=== PATIENT | male | born 1985 ===

== ENCOUNTER 2024-08-01 08:50 | Outpatient (AMB) | payer OTHER, SELFPAY ==
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
--- OUTSIDE RECORDS SUMMARY | 2024-08-01 09:21 | XMS_ITS | Clinical Summary ---
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 Max Daily Amount: 4 tablets 112 tablet 5 Active oxyCODONE-aceta minophen (PERCOCET) 5-325 mg per tablet Take 1 tablet by mouth every 6 (six) hours. Max Daily Amount: 4 tablets 112 tablet 5 Active oxyCODONE-aceta minophen (PERCOCET) 5-325 mg per tablet Take 1 tablet by mouth every 6 (six) hours. Max Daily Amount: 4 tablets 112 tablet 5 07/29/19 25 Discontinu ed(Reorder ) Active Problems Problem Noted Date Diagnosed Date Shortness of breath 06/12/2021 Overview (11/12/2023): Last Assessment & Plan: Etiology unclear. Likely related to his PVCs. Echocardiogram pending. Ventricular premature beats 08/29/2020 Overview (11/12/2023): PVCA Last Assessment & Plan: Stable at this time. Symptoms are rare. He is not on the metoprolol. Echocardiogram from July 2021 revealed a normal left ventricular ejection fraction of 55% and no wall motion abnormalities and no increased thickness of the left ventricle. We will continue to monitor. Palpitations 08/29/2020 Overview (11/12/2023): PVCA Last Assessment & Plan: Improved. No further work-up at this time. Obstructive sleep apnea 08/08/2019 Overview (11/12/2023): [facility] Home Sleep Apnea Test: Date 07/31/2019; BMI 35; RDI 19, AHI 10; average oxygen saturation 95 % (lowest 89 % without saturations <88% for 5% or more of study) - Obstructive Sleep Apnea - mild; without sleep related hypoventilation by 2019 home sleep apnea test. Severe obesity (BMI 35.0-39. 9) with comorbidity (CMS/HCC V24, CMS/HCC V28) 02/19/2017 Elevated blood sugar 08/11/2016 Lumbar disc disease 04/25/2014 Lumbago 04/25/2014 Encounters Date Type Department Care Team Description 05/19/2024 9:30 AM EDT Office Visit Adult Medicine [address] [phone] Don Coats MD Lumbar disc disease (Primary Dx); Obesity (BMI 30-39.9); Weak urine stream; Adenopathy from Last 3 Months Immunizations Name Administration Dates Next Due Td Tetanus diptheria (Tdvax) 7yo and older 01/01 Tdap Tetanus diptheria acell ular pertussis (Boostrix; Adacel) 7yo and older 03/14/2016 Surgical History Surgery Date Site/Laterality Comments WISDOM TOOTH EXTRACTION PROCEDURE: HISTORICAL WISDOM TEETH EXTRACTION SHOULDER SURGERY Right PROCEDURE: HISTORICAL SHOULDER SURGERY; COMMENT: rotator cuff repair Medical History Medical History Date Comments Seborrheic keratosis DX:Seborrhe ic keratosis Lumbar disc disease 04/25/2014 DX:Lumbar di sc disease Lumbago 04/25/2014 DX:Lumbago Family History Medical History Relation Name Comments Breast cancer Aunt maternal ?age/lateralit y?; lives in [place] Diabetes Maternal Grandmother HTN, emeli ng cancer(+smoker) Heart attack Mother breast cancer ( unilateral, age 45); HTN, HLD Relation Name Status Comments Aunt maternal Alive Brother x 1 Alive Father unknown Alive Maternal Grandfather Alive Maternal Grandmother Mother Alive Paternal Grandfather unknown Paternal Grandmother unknown Sister x 2 Alive Social History Tobacco Use Types Packs/Day Years Used Date Smoking Tobacco: Never Smokeless Tobacco: Never Tobacco Cessation:Counseling Given: Not Answered Alcohol Use Standard Drinks/Week Comments Yes 10 (1 standard drink = 0.6 oz pu re alcohol) Sex and Gender Information Value Date Recorded Sex Assigned at Not on file Legal Sex Male 9:26 AM EST Gender Identity Not on file Sexual Orientation Not on file Obstetrics History Last Filed Vital Signs Vital Sign Reading Time Taken Comments Blood Pressure 138/74 05/19/2024 9:26 AM EDT Pulse 78 05/19/2024 9:26 AM EDT Temperature 36.6 C (97.9 F) 05/19/2024 9:26 AM EDT Respiratory Rate 16 05/19/2024 9:26 AM EDT Oxygen Saturation 98% 02/12/2024 10:07 AM EST Inhaled Oxygen Concentration - - Weight 117 kg (257 lb) 05/19/2024 9:26 AM EDT Height 171.5 cm (5' 7.52 ) 05/19/2024 9:26 AM ED T Body Mass Index 39.63 05/19/2024 9:26 AM EDT Plan of Treatment Upcoming Encounters Date Type Department Care Team (Late st Contact Info) Description 08/10/2024 9:00 AM EDT Office Visit Adult Medicine [facility] [address] [place] [phone] Don Coats MD [address] [place] [address] 10/13/2024 2:00 PM EDT Office Visit Bariatric Surgery - [place] [address] [phone] Mya Paredes MD [address] [address] 10/26/2024 10:40 AM EDT Office Visit [facility] [address] [facility] [address] [place] [phone] Anna Lewis NP [address] [place] [address] Health Maintenance Due Date Last Done Comments COVID-19 Vaccine (#1) 1989 Hepatitis B Vaccines (1 of 3 - 19+ 3-dose series) 05/05/2003 Social Influencers of Health Screening 01/18/2022 Depression Screening 02/12/2024 02/11/2023 Influenza Vaccine (Season Ended) 2024 DTaP,Tdap,and Td Vaccines (3 - Td or Tdap) 03/14/2026 03/14/2016, 01/01/2013 Cholesterol Screening (Lipid Panel) 02/14/2029 02/15/2024, 07/17/2023, 07/17/2023 HIV Screening Completed 02/12/2024, 11/18/2021 Hepatitis C Screening Completed 02/12/2024 , 11/18/2021 HIB Vaccines Aged Out No longer eligi ble based on patient's age to complete this topic HPV Vaccines Aged Out No longer eligi ble based on patient's age to complete this topic Hepatitis A Vaccines Aged Out No long er eligible based on patient's age to complete this topic IPV Vaccines Aged Out No longer eligi ble based on patient's age to complete this topic MMR Vaccines Aged Out No longer eligi ble based on patient's age to complete this topic Meningococcal ACWY Vaccine Aged Out N o longer eligible based on patient's age to complete this topic Meningococcal B Vaccine Aged Out No l onger eligible based on patient's age to complete this topic Pneumococcal Vaccine: Pediatrics (0 to 5 Years) and At-Risk Patients (6 to 64 Years) Aged Out No longer eligible b ased on patient's age to complete this topic RSV Immunization Patients Under 20 months Aged Out No longer eligible b ased on patient's age to complete this topic Varicella Vaccines Aged Out No longer eligible based on patient's age to complete this topic Procedures Procedure Name Priority Date/Time Associated Diagnosis Comments CBC WITH AUTO DIFFERENTIAL Routine 05/19/2024 9:55 AM EDT Adenopathy PROSTATE SPECIFIC ANTIGEN SCREEN Routine 05/19/2024 9:55 AM EDT Weak urine stream CBC AND DIFFERENTIAL Routine 05/19/2024 9:55 AM EDT Adenopathy LIPID PANEL WITH REFLEX TO DIRECT LDL Routine 02/15/2024 8:34 AM EST Screening for lipid disorders HEPATITIS C ANTIBODY Routine 02/12/2024 12:45 PM EST Screen for STD (sexually transmitted disease) HIV 1, 2 ANTIBODY, P24 ANTIGEN WITH REFLEX TO DIFFERENTIATION Routine 02/12/2024 12:45 PM EST Screen for STD (sexually transmitted disease) HM DEPRESSION SCREENING Routine 02/11/2023 from Last 3 Months or Most Recently Relevant to Health Maintenance Results * Prostate specific antigen screen (05/19/2024 9:55 AM EDT) PSA 0.47 0.00 - 4.00 ng/mL LAB CHEMISTRY METHOD 05/19/2024 12:48 PM EDT [facility] Blood Venous blood specimen / Unknown Venipuncture / Unknown 05/19/2024 9:55 AM EDT 05/19/2024 9:55 AM EDT Narrative [facility] - 05/19/2024 12:48 PM EDT The Siemens Advia Centaur Chemiluminescent Immunoassay is used. Results obtained with different assay methods or kits cannot be used interchangeably. Results cannot be interpreted as absolute evidence of the presence or absence of malignant disease. us Don Coats MD LAB BLOOD ORDERABLES Final Resu lt [facility] [address] [place] [address], [place] [phone] * (ABNORMAL) CBC auto differential (05/19/2024 9:55 AM EDT) [facility] WBC 8.8 4.8 - 10.8 K/mcL LAB HEMETOLOGY METHOD 05/19/2024 12:28 PM EDT [facility] RBC 5.10 4.50 - 5.50 M/mcL LAB HEMETOLOGY [facility]24 [facility] Hemoglobin 15.0 13.5 - 17.5 g/dL LAB HEMETOLOGY METHOD 05/19/2024 12:28 [facility] Hematocrit 45.3 42.0 - 54.0 % LAB HEMETOLOGY METHOD 05/19/2024 12:28 [facility] MCV 89.5 79.0 - 98.0 FL LAB HEMETOLOGY METHOD 05/19/2024 12:28 PM [facility] MCH 29.6 27.0 - 32.0 pcg LAB HEMETOLOGY METHOD 05/19/2024 12:28 PM [facility] MCHC 33.1 32.0 - 37.0 g/dL LAB HEMETOLOGY METHOD 05/19/2024 12:28 PM [facility] RDW 12.4 11.0 - 15.0 % LAB HEMETOLOGY METHOD 05/19/2024 12:28 PM [facility] Platelets 301 130 - 400 K/mcL LAB HEMETOLOGY METHOD 05/19/2024 12:28 PM [facility] MPV 11.1(H) 7.0 - 11.0 FL LAB HEMETOLOGY METHOD 05/19/2024 12:28 PM [facility] NRBC 0.0 <1.0 % LAB HEMETOLOGY METHOD 05/19/2024 12:28 PM [facility] NRBC Absolute 0.00 <0.10 K/mcL LAB HEMETOLOGY METHOD 05/19/2024 12:28 PM [facility] Neutrophils Relative 52.1 % LAB HEMETOLOGY METHOD 05/19/2024 12:28 PM [facility] Lymphocytes Relative 37.2 % LAB HEMETOLOGY METHOD 05/19/2024 12:28 PM [facility] Monocytes Relative 7.5 % LAB HEMETOLOGY METHOD 05/19/2024 12:28 PM [facility] Eosinophils Relative 1.8 % LAB HEMETOLOGY METHOD 05/19/2024 12:28 PM [facility] Basophils Relative 0.8 % LAB HEMETOLOGY METHOD 05/19/2024 12:28 PM [facility] Immature Granulocytes Relative 0.6 % LAB HEMETOLOGY METHOD 05/19/2024 12:28 PM [facility] Neutrophils Absolute 4.59 1.50 - 7.00 K/mcL LAB HEMETOLOGY METHOD 05/19/2024 12:28 PM [facility] Lymphocytes Absolute 3.27 1.00 - 5.00 K/mcL LAB HEMETOLOGY METHOD 05/19/2024 12:28 PM [facility] Monocytes Absolute 0.66 0.20 - 1.00 K/mcL LAB HEMETOLOGY METHOD 05/19/2024 12:28 PM [facility] Eosinophils Absolute 0.16 0.00 - 0.50 K/mcL LAB HEMETOLOGY METHOD 05/19/2024 12:28 PM [facility] Basophils Absolute 0.07 0.00 - 0.20 K/mcL LAB HEMETOLOGY METHOD 05/19/2024 12:28 PM [facility] Immature Granulocytes Absolute 0.05(H) 0.00 - 0.03 K/mcL LAB HEMETOLOGY METHOD 05/19/2024 12:28 PM [facility] Blood Venous blood specimen / Unknown Venipuncture / Unknown 05/19/2024 9:55 AM EDT 05/19/2024 9:55 AM EDT us Don Coats MD LAB BLOOD ORDERABLES Final Resu lt [facility] [address] [place] [address], [place] [phone] * (ABNORMAL) Lipid panel with reflex to direct LDL (02/15/2024 8:34 AM EST) Cholesterol 250(H) 0 - 200 mg/dL LAB CHEMISTRY METHOD 02/15/2024 10:20 AM EST [facility] Triglycerides 279(H) 0 - 150 mg/dL LAB CHEMISTRY METHOD 02/15/2024 10:20 AM EST [facility] HDL 61 >=40 mg/dL LAB CHEMISTRY METHOD 02/15/2024 10:20 AM EST [facility] LDL Calculated 133(H) 0 - 100 mg/dL LAB CHEMISTRY METHOD 02/15/2024 10:20 AM EST [facility] VLDL Cholesterol Gianfranco 55.8 mg/dL LAB CHEMISTRY METHOD 02/15/2024 10:20 AM EST [facility] Non HDL Chol. (LDL+VLDL) 189(H) <145 mg/dL LAB CHEMISTRY METHOD 02/15/2024 10:20 AM EST [facility] Chol/HDL Ratio 4.1 0.0 - 4.4 LAB CHEMISTRY METHOD 02/15/2024 10:20 AM EST [facility] Blood Venous blood specimen / Unknown Venipuncture / Unknown 02/15/2024 8:34 AM EST 02/15/2024 8:34 AM EST Rehan AMOR LAB BLOOD ORDERABLES Fi nal Result [facility] [address] [place] [address], [place] [phone] * Hepatitis C antibody (02/12/2024 12:45 PM EST) [facility] Hepatitis C Antibody Negative Negative LAB CHEMISTRY METHOD 02/12/2024 5:30 PM EST [facility] Blood Venous blood specimen / Unknown Venipuncture / Unknown 02/12/2024 12:45 PM EST 02/12/2024 12:45 PM EST Rehan AMOR LAB BLOOD ORDERABLES Fi nal Result Performing Organization Address City/[facility]/ZIP Co de Phone Number [facility] [address] [place] [address], * HIV 1,2 antibody, p24 antigen with reflex to differentiation (02/12/2024 12:45 PM EST) [facility] HIV Combo AB/AG Negative Negative LAB CHEMISTRY METHOD 02/12/2024 5:30 PM EST [facility] Blood Venous blood specimen / Unknown Venipuncture / Unknown 02/12/2024 12:45 PM EST 02/12/2024 12:45 PM EST Narrative [facility] - 02/12/2024 5:30 PM EST This assay is a 4th generation assay allowing for earlier detection of HIV infection by detecting the presence of the HIV-1 p24 antigen as well as the traditional antibodies to HIV type 1 (including group O) and type 2. Use of a 4th generation assay is the current CDC recommendation for HIV screening. Rehan AMOR LAB BLOOD ORDERABLES Fi nal Result Performing Organization Address City/[facility]/ZIP Co de Phone Number [facility] [address] [place] [address], [place] [phone] * Hm Depression Screening (02/11/2023) 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
== END 2024-08-01 10:24 | disposition home or self-care (01) ==
LOC: HO.HUSH 08:51
PROVIDERS: PCP Internal Medicine; Visit Provider Urology
DX: R39.198 Other difficulties with micturition (principal); R39.13 Splitting of urinary stream; R35.0 Frequency of micturition; R39.11 Hesitancy of micturition; N53.19 Other ejaculatory dysfunction
CPT/HCPCS: 99204

== ENCOUNTER → 2024-08-01 08:50 | Outpatient (BNVA) | payer OTHER, SELFPAY | PROVIDERS: PCP Internal Medicine; Visit Provider Urology | DX: R35.0 Frequency of micturition (principal); R39.11 Hesitancy of micturition; R39.13 Splitting of urinary stream; N53.19 Other ejaculatory dysfunction; R39.198 Other difficulties with micturition; Z13.9 Encounter for screening, unspecified | CPT/HCPCS: 51798; 81003; 99202 ==

== ENCOUNTER 2024-10-05 09:37 | Outpatient (REF) | payer OTHER, SELFPAY ==
--- NOTE | ~2024-10-05 | US_ITS ---
EXAMINATION: US RETROPERITONEUM HISTORY: R35.0 - Frequency of micturition TECHNIQUE: Real-time grayscale ultrasound imaging of the kidneys was performed and images were reviewed. COMPARISON: There are no prior studies available for comparison. FINDINGS: Right kidney: The right kidney measures 11.7 x 6.5 x 6.7 cm. Renal parenchymal echotexture and thickness are normal. There are no masses. There is no hydronephrosis or renal calculi. Left Kidney: The left kidney measures 12.3 x 6.8 x 5.9 cm. Renal parenchymal echotexture and thickness are normal. There are no masses. There is no hydronephrosis or renal calculi. There is a small amount of debris in the urinary bladder. The urinary bladder is otherwise unremarkable. Bilateral ureteral jets are identified. Before voiding, the urinary bladder measured 7.9 x 7.0 x 7.1 cm, for an estimated volume of 226 mL. After voiding, the urinary bladder measured 3.8 x 1.6 x 3.2 cm, for an estimated volume of 10.6 mL. The prostate measures 3.9 x 3.4 x 3.3 cm, for an estimated volume of 23.5 mL. US/US retroperitoneal comp IMPRESSION: 1. Small amount of debris in the urinary bladder. Otherwise unremarkable retroperitoneal ultrasound. 2. Post void bladder residual of 10.6 mL. 3. Prostate volume of 23.5 mL. Electronically signed by: Maximino Diallo MD 10/05/2024 10:17 AM EDT
--- OUTSIDE RECORDS SUMMARY | 2024-10-05 10:17 | XMS_ITS ---
[facility] Care Team Organization Name Specialty Phone Email Start Date End Da te [facility] CARISSA LOVE Primary Care 12/17/2021 4
--- OUTSIDE RECORDS SUMMARY | 2024-10-05 10:17 | XMS_ITS | Clinical Summary ---
Author Organization [facility] [address] [place] [address] [place] [phone] Phone Care Team Providers Care Venetian Blind Assembler Name Role Phone Don Coats MD Primary Care Provider Allergies No known active allergies Medications oxyCODONE-aceta minophen (PERCOCET) 5-325 mg per tablet Take 1 tablet by mouth every 6 (six) hours. Max Daily Amount: 4 tablets 112 tablet 5 Active tirzepatide, weight loss, (Zepbound) 2.5 mg/0.5 mL solutionIndicat ions:Obesity (BMI 30-39.9) Inject 2.5 mg under the skin every 7 (seven) days. 2 mL 5 Active oxyCODONE-aceta minophen (PERCOCET) 5-325 mg per tablet Take 1 tablet by mouth every 6 (six) hours. Max Daily Amount: 4 tablets 112 tablet 5 Active oxyCODONE-aceta minophen (PERCOCET) 5-325 mg per tablet Take 1 tablet by mouth every 6 (six) hours. Max Daily Amount: 4 tablets 112 tablet 5 09/29/19 25 Discontinu ed(Reorder ) Active Problems Problem Noted Date Diagnosed Date Biceps rupture, distal, right, initial encounter 09/09/2024 Shortness of breath 06/12/2021 Overview (11/12/2023): Last [...] time. Obstructive sleep apnea 08/08/2019 Overview (11/12/2023): [facility] Home Sleep Apnea Test: Date 07/31/2019; BMI [...] Encounters Date Type Department Care Team Description 10/04/2024 Telephone Orthopedic Surgery [facility] [address] [facility] [address] [place] [phone] Shanae Modi MD 09/19/2024 Telephone Orthopedic Surgery [facility] 175 [facility] [address] [place] [phone] Shanae Modi MD 09/16/2024 6:38 PM EDT - 09/16/2024 11:59 PM EDT Hospital Encounter [facility] MRI [address] [place] [phone] Biceps rupture, distal, right, initial encounter Discharge Disposition: Home or Self Care 09/09/2024 1:30 PM EDT Consult Orthopedic Surgery [facility] 175 [facility] [address] [place] [phone] Shanae Modi MD Right elbow pain (Primary Dx); Biceps rupture, distal, right, initial encounter 09/01/2024 Telephone Orthopedics - [address] [phone] Loreta Mendez MA 08/24/2024 10:00 AM EDT - 08/24/2024 11:59 PM EDT Hospital Encounter Radiology Department - [address] [phone] Nonintractable headache, unspecified chronicity pattern, unspecified headache type; Confusion Discharge Disposition: Home or Self Care 08/11/2024 Telephone Adult Medicine [address] [phone] Don Coats MD 08/10/2024 9:00 AM EDT Office Visit Adult Medicine [address] [phone] Don Coats MD Routine physical examination (Primary Dx); Elevated blood sugar; Hypercholesterolemia; Obesity (BMI 30-39.9); Skin lesion; Rupture of right proximal biceps tendon, initial encounter; Nonintractable headache, unspecified chronicity pattern, unspecified headache type; Confusion from Last 3 Months Immunizations Name Administration [...] cancer Aunt maternal ?age/lateralit y?; lives in [place] Diabetes Maternal Grandmother HTN, emeli ng cancer(+smoker) [...] Date Smoking Tobacco: Never Smokeless Tobacco: Never Alcohol Use Standard Drinks/Week Comments Yes 10 (1 standard drink = 0.6 oz pu re alcohol) Housing Instability Answer Date Recorde d Are you worried that in the next 2 months you may not have stable housing? No 08/10/2024 Food Access & Nutrition Answer Date Rec orded Do you have access to a vari ety of food including fruits and vegetables? Yes 08/10/2024 Access to Healthcare Answer Date Record ed Within the last 3 months, ho w many times did you visit the emergency department for your medical care? 0 08/10/2024 Health Literacy Answer Date Recorded How often do you need to hav e someone help you when you read instructions, pamphlets, or other written material from your doctor or pharmacy? Never 08/10/2024 Caregiver: How often do you need to have someone help you when you read instructions, pamphlets, or other written material from your doctor or pharmacy? Not on file 08/10/2024 Financial Risk Answer Date Recorded How hard is it for you to pa y for the very basics like food, housing, medical care, and air conditioning / heating? Not very hard 08/10/2024 Transportation Answer Date Recorded Has the lack of transportati on kept you from meetings, work, or from getting things needed for daily living? No Has the lack of transportati on kept you from medical appointments or from getting medications? No 08/10/2024 Social Isolation Answer Date Recorded How often do you feel lonely or isolated from th ose around you? Never 08/10/2024 Food Risk Answer Date Recorded Within the past 12 months we worried whether our food would run out before we got money to buy more. Never true 08/10/2024 Within the past 12 months th e food we bought just didn't last and we didn't have money to get more. Never true 08/10/2024 Dependent Care Answer Date Recorded Do you need help finding or paying for care for your loved ones. For example, assistant child care teacher or elderly care for an older adult? No 08/10/2024 Education Answer Date Recorded Do you think completing more education or training, like finishing a GED, going to college, or learning a trade, would be helpful for you? No 08/10/2024 Employment and Income Answer Date Recor ded During the last four weeks, have you been actively looking for work? No 08/10/2024 Living Situation Answer Date Recorded What is your living situation? 0 08/10/2024 Sex and Gender Information Value Date Recorded Sex Assigned at Not on file Legal Sex Male 9:26 AM EST Gender Identity Not on file Sexual Orientation Not on file Obstetrics History Last Filed Vital Signs Vital Sign Reading Time Taken Comments Blood Pressure 122/80 08/10/2024 8:57 AM EDT Pulse 76 08/10/2024 8:57 AM EDT Temperature 36.6 C (97.9 F) 08/10/2024 8:57 AM EDT Respiratory Rate 14 08/10/2024 8:57 AM EDT Oxygen Saturation 99% 08/10/2024 8:57 AM EDT Inhaled Oxygen Concentration - - Weight 111 kg (245 lb) 09/09/2024 1:25 PM EDT Height 171.5 cm (5' 7.5 ) 09/09/2024 1:25 PM EDT Body Mass Index 37.81 09/09/2024 1:25 PM EDT Plan of Treatment Upcoming Encounters Date Type Department Care Team (Late st Contact Info) Description 10/13/2024 2:00 PM EDT Office Visit Bariatric Surgery - [place] 175 [facility] [address] [place] [phone] Mya Paredes MD [address] [place] [phone] 10/26/2024 10:40 AM EDT Office Visit [facility] - [facility] [address] [facility] [address] [place] [phone] Anna Lewis NP [address] [place] [address] [place] [address] 11/14/2024 8:00 AM EDT Office Visit Adult Medicine [facility] [address] [place] [phone] Juli Lynne NP 444 [place] [address] Health Maintenance Due Date Last Done Comments COVID-19 Vaccine (#1) 1989 Hepatitis B Vaccines (1 of 3 - 19+ 3-dose series) 05/05/2003 Influenza Vaccine (#1) 2024 Social Influencers of Health Screening 08/10/2025 08/10/2024 DTaP,Tdap,and Td Vaccines (3 - Td or Tdap) 03/14/2026 03/14/2016, 01/01/2013 Cholesterol Screening (Lipid Panel) 08/10/2029 08/10/2024, 02/15/2024, 07/17/2023, Additional history exists HIV Screening Completed 02/12/2024, 11/18/2021 Hepatitis C Screening Completed 02/12/2024, 022 Depression Screening Completed 08/10/2024, 02/11/19 24 HIB Vaccines Aged Out No longer eligi [...] 5 Years) and At-Risk Patients (6 to 49 Years) Aged Out No longer eligible based on patient's age to complete this topic RSV Immunization Patients Under 20 months Aged Out No longer eligible based on patient's age to complete this topic Varicella Vaccines Aged Out No longer eligible based on patient's age to complete this topic Procedures Procedure Name Priority Date/Time Associated Diagnosis Comments MR ELBOW WO CONTRAST RIGHT STAT 09/16/2024 7:45 PM EDT Biceps rupture, distal, right, initial encounter XR ELBOW 3+ VIEWS RIGHT Routine 09/10/19 25 2:19 PM EDT Right elbow pain MR BRAIN WO AND W CONTRAST Routine 08/24/2024 10:37 AM EDT Nonintractable headache, unspecified chronicity pattern, unspecified headache type Confusion LIPID PANEL WITH REFLEX TO DIRECT LDL Routine 08/10/2024 10:07 AM EDT Hypercholesterolemi a COMPREHENSIVE METABOLIC PANEL Routine 08/10/2024 10:07 AM EDT Elevated blood sugar HEMOGLOBIN A1C Routine 08/10/2024 10:07 AM EDT Elevated blood sugar HEPATITIS C ANTIBODY Routine 02/12/2024 12:45 PM EST Screen for STD (sexually transmitted disease) HIV 1, 2 ANTIBODY, P24 ANTIGEN WITH REFLEX TO DIFFERENTIATION Routine 02/12/2024 12:45 PM EST Screen for STD (sexually transmitted disease) HM DEPRESSION SCREENING Routine 02/11/2023 from Last 3 Months or Most Recently Relevant to Health Maintenance Results * MR Elbow wo Contrast Right (09/16/2024 7:45 PM EDT) Anatomical Region Laterality Modality Upper Extremities, Elbow Right Magneti c Resonance 09/18/2024 4:54 AM EDT Impressions 09/18/2024 5:00 AM EDT 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 Clinical concern for biceps injury. COMPARISON: None TECHNIQUE: Multiplanar, multisequence MRI examination was performed of the Right elbow without intravenous contrast. FINDINGS: Bone/Cartilages: No acute fracture or dislocation of the right elbow. No osteochondral lesion. Cystic change along the radiocapitellar articulation. Ligaments:Ulnar and radial collateral ligament complexes are intact. Tendons:The insertional fibers of the distal biceps tendon are not well visualized in keeping with complete tear with a small amount of radiobicipital bursitis with retraction of the tendon fibers to the level of the antecubital fossa located approximately 7.8 cm from the radial tuberosity. Mild insertional brachialis tendinosis. Common flexor and extensor tendon are intact without tears. Triceps tendon is intact. No muscular atrophy. Nerves:No abnormalities of the ulnar or other nerves around the elbow. Miscellaneous:Right elbow joint fluid. No loose bodies. No mass or fluid collection. Procedure Note Marie Saab MD - 09/18/2024 INDICATION: Right elbow pain. Clinical concern for biceps injury. COMPARISON: None TECHNIQUE: Multiplanar, multisequence MRI examination was performed of theRight elbow without intravenous contrast. FINDINGS: Bone/Cartilages: No acute fracture or dislocation of the right elbow. Noosteochondral lesion. Cystic change along the radiocapitellararticulation. Ligaments:Ulnar and radial collateral ligament complexes are intact. Tendons:The insertional fibers of the distal biceps tendon are not wellvisualized in keeping with complete tear with a small amount ofradiobicipital bursitis with retraction of the tendon fibers to the levelof the antecubital fossa located approximately 7.8 cm from the radialtuberosity. Mild insertional brachialis tendinosis. Common flexor andextensor tendon are intact without tears. Triceps tendon is intact. Nomuscular atrophy. Nerves:No abnormalities of the ulnar or other nerves around the elbow. Miscellaneous:Right elbow joint fluid. No loose bodies. No mass or fluidcollection. IMPRESSION: Chronic full-thickness tear of the distal biceps tendon with retraction ofthe tendon fibers to the level of the antecubital fossa -------- FINAL REPORT -------- Dictated By: Marie Saab Dictated Date: 09/18/2024 04:54 ET Assigned Physician: Marie Saab Reviewed and Electronically Signed By: Marie Saab Signed Date: 09/18/2024 05:00 ET Workstation ID: [id number] Transcribed By: Self Edit Transcribed Date: 09/18/2024 04:54 ET us Shanae Modi MD IM MRI PROCEDURES Final Resu lt * XR Elbow 3+ Views Right (09/09/2024 2:19 PM EDT) Anatomical Region Laterality Modality Upper Extremities, Elbow Right Compute d Radiography Narrative 09/09/2024 3:47 PM EDT AP, lateral, oblique of the right elbow was obtained on 09/29/2024. There are no obvious fractures, lytic lesions, or unusual calcifications. Joint spaces are all well-maintained. Impression: Normal elbow x-ray us Shanae Modi MD IM XR PROCEDURES Final Resul t * MR Brain wo and w Contrast (08/24/2024 10:37 AM EDT) Anatomical Region Laterality Modality Head and Neck Magnetic Resonan ce 08/24/2024 5:08 PM EDT Narrative 08/24/2024 5:15 PM EDT MRI of the head without and with intravenous contrast. HISTORY: Low standing headaches. Severe headache associated with confusion few days ago. Examination was performed on 1.5 Radha magnet without administration of intravenous contrast followed by postcontrast study after administration of 20 mL of DOTAREM. No prior studies are available for comparison. There is no evidence of midline shift, extra or intra-axial blood or fluid collections. There is no visible masses or mass effect in the brain and cerebellum. There is no focal areas of restricted diffusion, territorial infarctions, magnetic susceptibility artifact or abnormal enhancing lesions. Ventricular system is symmetric and normal in size. Fourth ventricle and basal cisterns are midline and patent. There is a large retention cyst in the left maxillary sinus measuring 2.6 x 2 cm. Other paranasal sinuses and mastoid processes are unremarkable. CONCLUSIONS: No focal MRI abnormalities in the brain and cerebellum. Large retention cyst in the left maxillary sinus. -------- FINAL REPORT -------- Dictated By: Angelica Sanchez Dictated Date: 08/24/2024 17:08 ET Assigned Physician: Angelica Sanchez Reviewed and Electronically Signed By: Angelica Sanchez Signed Date: 08/24/2024 17:15 ET Workstation ID: [id number] Transcribed By: Self Edit Transcribed Date: 08/24/2024 17:08 ET Procedure Note Angelica Sanchez MD - 08/24/2024 MRI of the head without and with intravenous contrast. HISTORY: Low standing headaches. Severe headache associated with confusionfew days ago. Examination was performed on 1.5 Radha magnet without administration ofintravenous contrast followed by postcontrast study after administrationof 20 mL of DOTAREM. No prior studies are available for comparison. Thereis no evidence of midline shift, extra or intra-axial blood or fluidcollections. There is no visible masses or mass effect in the brain andcerebellum. There is no focal areas of restricted diffusion, territorialinfarctions, magnetic susceptibility artifact or abnormal enhancinglesions. Ventricular system is symmetric and normal in size. Fourthventricle and basal cisterns are midline and patent. There is a large retention cyst in the left maxillary sinus measuring 2.6x 2 cm. Other paranasal sinuses and mastoid processes are unremarkable. CONCLUSIONS: No focal MRI abnormalities in the brain and cerebellum. Largeretention cyst in the left maxillary sinus. -------- FINAL REPORT -------- Dictated By: Angelica Sanchez Dictated Date: 08/24/2024 17:08 ET Assigned Physician: Angelica Sanchez Reviewed and Electronically Signed By: Angelica Sanchez Signed Date: 08/24/2024 17:15 ET Workstation ID: [id number] Transcribed By: Self Edit Transcribed Date: 08/24/2024 17:08 ET us Don Coats MD [facility] MRI PROCEDURES Final Result * (ABNORMAL) Lipid panel with reflex to direct LDL (08/10/2024 10:07 AM EDT) Cholesterol 218(H) 0 - 200 mg/dL LAB CHEMISTRY METHOD 08/10/2024 12:31 PM EDT [facility] Triglycerides 199(H) 0 - 150 mg/dL LAB CHEMISTRY METHOD 08/10/2024 12:31 PM EDT [facility] HDL 60 >=40 mg/dL LAB CHEMISTRY METHOD 08/10/2024 12:31 PM EDT [facility] LDL Calculated 118(H) 0 - 100 mg/dL LAB CHEMISTRY METHOD 08/10/2024 12:31 PM EDT [facility] VLDL Cholesterol Gianfranco 39.8 mg/dL LAB CHEMISTRY METHOD 08/10/2024 12:31 PM EDT [facility] Non HDL Chol. (LDL+VLDL) 158(H) <145 mg/dL LAB CHEMISTRY METHOD 08/10/2024 12:31 PM EDT [facility] Chol/HDL Ratio 3.6 0.0 - 4.4 LAB CHEMISTRY METHOD 08/10/2024 12:31 PM EDT [facility] Blood Venous blood specimen / Unknown Venipuncture / Unknown 08/10/2024 10:07 AM EDT 08/10/2024 10:07 AM EDT us Don Coats MD LAB BLOOD ORDERABLES Final Resu lt [facility] [address] [place] [address], * Hemoglobin A1c (08/10/2024 10:07 AM EDT) Hemoglobin A1C 5.6 <6.5 % LAB CHEMISTRY METHOD 08/10/2024 1:50 PM EDT [facility] Mean Bld Glu Estim. 114 mg/dL LAB CHEMISTRY METHOD 08/10/2024 1:50 PM EDT [facility] Blood Venous blood specimen / Unknown Venipuncture / Unknown 08/10/2024 10:07 AM EDT 08/10/2024 10:07 AM EDT us Don Coats MD LAB BLOOD ORDERABLES Final Resu lt [facility] [address] [place] [address], * (ABNORMAL) Comprehensive metabolic panel (08/10/2024 10:07 AM EDT) Sodium 139 133 - 145 mmol/L LAB CHEMISTRY METHOD 08/10/2024 12:31 PM [facility] Potassium 4.4 3.5 - 5.5 mmol/L LAB CHEMISTRY METHOD 08/10/2024 12:31 PM [facility] Chloride 105 96 - 110 mmol/L LAB CHEMISTRY METHOD 08/10/2024 12:31 PM [facility] CO2 30 21 - 32 mmol/L LAB CHEMISTRY METHOD 08/10/2024 12:31 PM [facility] Anion Gap 4 3 - 11 LAB CHEMISTRY METHOD 08/10/2024 12:31 PM [facility] Glucose 104(H) 70 - 100 mg/dL LAB CHEMISTRY METHOD 08/10/2024 12:31 PM [facility] BUN 16 5 - 25 mg/dL LAB CHEMISTRY METHOD 08/10/2024 12:31 PM [facility] Creatinine 0.99 0.70 - 1.30 mg/dL LAB CHEMISTRY METHOD 08/10/2024 12:31 PM [facility] eGFR 99 >=60 mL/min/1. 73m2 LAB CHEMISTRY METHOD 08/10/2024 12:31 PM [facility] Comment:Calculation based on the Chronic Kidney Disease Epidemiology Collaboration (CKD-EPI) equation refit without adjustment for race. BUN/Creatinine Ratio 16.2 LAB CHEMISTRY METHOD 08/10/2024 12:31 PM [facility] Calcium 9.6 8.5 - 10.5 mg/dL LAB CHEMISTRY METHOD 08/10/2024 12:31 PM EDT [facility] AST (SGOT) 26 10 - 42 unit/L LAB CHEMISTRY METHOD 08/10/2024 12:31 PM EDT [facility] ALT (SGPT) 45 10 - 60 unit/L LAB CHEMISTRY METHOD 08/10/2024 12:31 PM EDT [facility] Alkaline Phosphatase 87 42 - 121 unit/L LAB CHEMISTRY METHOD 08/10/2024 12:31 PM EDT [facility] Total Protein 7.9 6.0 - 8.0 g/dL LAB CHEMISTRY METHOD 08/10/2024 12:31 PM EDT [facility] Albumin 4.1 3.2 - 5.0 g/dL LAB CHEMISTRY METHOD 08/10/2024 12:31 PM EDT [facility] Total Bilirubin 0.5 0.0 - 1.4 mg/dL LAB CHEMISTRY METHOD 08/10/2024 12:31 PM EDT [facility] Blood Venous blood specimen / Unknown Venipuncture / Unknown 08/10/2024 10:07 AM EDT 08/10/2024 10:07 AM EDT us Don Coats MD LAB BLOOD ORDERABLES Final Resu lt [facility] [address] [place] [address], * Hepatitis C antibody (02/12/2024 12:45 PM EST) Hepatitis C Antibody Negative Negative LAB CHEMISTRY METHOD 02/12/2024 5:30 PM EST [facility] Blood Venous blood specimen / Unknown Venipuncture / Unknown 02/12/2024 12:45 PM EST 02/12/2024 12:45 PM EST us Rehan AMOR LAB BLOOD ORDERABLES Fi nal Result [facility] [address] [place] [address], * HIV 1,2 antibody, p24 antigen with reflex to differentiation (02/12/2024 12:45 PM EST) [facility] HIV Combo AB/AG Negative Negative LAB CHEMISTRY METHOD 02/12/2024 5:30 PM EST [facility] Blood Venous blood specimen / Unknown Venipuncture / Unknown 02/12/2024 12:45 PM EST 02/12/2024 12:45 PM EST Narrative [facility] - 02/12/2024 5:30 PM EST [...] ORDERABLES Fi nal Result Performing Organization Address City/[facility]/ZIP Co de Phone Number [facility] [address] [place] [address], * Depression Screening (02/11/2023) [facility] Depression Screening Abstracted Historical Provider HEALTH MAINTENANCE Final Result from Last 3 Months or Most Recently Relevant to Health Maintenance Insurance [facility] Care Teams Venetian Blind Assembler Relationship Specialty Start Date End Date Don Coats MD PCP - General Internal Medicine 12/01/12
--- OUTSIDE RECORDS SUMMARY | 2024-10-05 10:17 | XMS_ITS | Encounter Summary ---
Author Organization [facility] Address [address] [place] [address] Care Team Providers Care Operational Meteorologist Name Role Phone Don Coats MD Primary Care Provider [phone] Encounter Details Date Type Department Care Team (Late st Contact Info) Description 10/04/2024 Telephone Orthopedic Surgery - [place] [address] [place] [phone] Shanae Modi MD [address] [place] [phone] Social History Tobacco Use Types Packs/Day Years [...] ed Within the last 3 months, ho josué many times did you visit the emergency [...] care for your loved ones. For example, child daycare worker or elderly care for an older adult? [...] on file Sexual Orientation Not on file documented as of this encounter Progress Notes * Mandy Ho - 10/04/2024 9:35 AM EDT Joselo came into the office today requesting a call back regarding to move forward with surgery.Please advise. Thanks documented in this encounter Plan of Treatment Upcoming Encounters Date Type Department Care Team (Late st Contact Info) Description 10/13/2024 2:00 PM EDT Office Visit Bariatric Surgery - [address] [place] [phone] Mya Paredes MD [address] [place] [phone] 10/26/2024 10:40 AM EDT Office Visit [facility] - [address] [place] [phone] Anna Lewis NP [address] [place] [address] [place] [address] 11/14/2024 8:00 AM EDT Office Visit Adult Medicine [facility] [address] [place] [address] Juli Lynne NP [address] [place] [address] documented as of this encounter Visit Diagnoses Not on filedocumented in this encounter Additional Health Concerns Assessment Noted Time PHQ-9 Depression Total Score: 0 08/11/19 25 9:06 AM EDT documented as of this encounter Care Teams Operational Meteorologist Relationship Specialty Start Date End Date Don Coats MD PCP - General Internal Medicine 12/01/12 documented as of this encounter
== END 2024-10-05 09:38 | disposition home or self-care (01) ==
LOC: HO.US 09:37
PROVIDERS: PCP Internal Medicine; Visit Provider Urology
DX: R35.0 Frequency of micturition (principal)
CPT/HCPCS: 76770

== ENCOUNTER → 2024-10-05 09:42 | Outpatient (BNV) | payer OTHER, SELFPAY | PROVIDERS: PCP Internal Medicine; Visit Provider Radiology Diagnostic Radiology | DX: R35.0 Frequency of micturition (principal) | CPT/HCPCS: 76770 ==

== ENCOUNTER 2024-10-17 09:34 | Outpatient (AMB) | payer OTHER, SELFPAY ==
--- OUTSIDE RECORDS SUMMARY | 2024-10-13 14:00 | XMS_ITS | Encounter Summary ---
Author Organization [facility] Address [address] [place] [address] Care Team Providers Care Format Proofreader Name Role Phone Don Coats MD Primary Care Provider [phone] Reason for Referral * Medications - Pending Review Specialty Diagnoses / Procedures Referred By Heidi ramos Referred To Contact Diagnoses Class 2 severe obesity due to excess calories with serious comorbidity and body mass index (BMI) of 35.0 to 35.9 in adult (CMS/HCC V24, CMS/HCC V28) Mya Paredes MD [address] [place] [address] Phone: tel: fax: Referral ID Status Reason Start Date Expiration Date V isits Requested Visits Authorized [id number] Pending Review 1 1 Reason for Visit * Reason Comments Follow-up Last seen 2022 * Consultation (Routine) - Authorized Specialty Diagnoses / Procedures Referred By Heidi t Referred To Contact Bariatrics Diagnoses Obesity (BMI 30-39.9) Don Coats MD [address] [place] [phone] Phone: tel: fax: Mya Paredes MD [address] [place] [address] Phone: tel: fax: Referral ID Status Reason Start Date Expiration Date Visits Requested Visits Authorized [id number] Authorized Specialty Services Required 06/11/2024 06/11/2025 1 1 Encounter Details Date Type Department Care Team (Late st Contact Info) Description 10/13/2024 2:00 PM EDT Office Visit Bariatric Surgery - [address] [place] [address] Mya Paredes MD [address] [place] [address] Class 2 severe obesity due to excess calories with serious comorbidity and body mass index (BMI) of 35.0 to 35.9 in adult (CMS/HCC V24, CMS/HCC V28) (Primary Dx); Obesity (BMI 30-39.9) Social History Tobacco Use Types Packs/Day Years [...] care for your loved ones. For example, children's service supervisor or elderly care for an older adult? [...] on file documented as of this encounter Last Filed Vital Signs Vital Sign Reading Time Taken Comments Blood Pressure 109/65 10/13/2024 2:13 PM EDT Pulse 62 10/13/2024 2:13 PM EDT Temperature 36.6 C (97.8 F) 10/13/2024 2:13 PM EDT Respiratory Rate - - Oxygen Saturation - - Inhaled Oxygen Concentration - - Weight 103 kg (227 lb) 10/13/2024 2:13 PM EDT Height 171.5 cm (5' 7.5 ) 10/13/2024 2:13 PM EDT Body Mass Index 35.03 10/13/2024 2:13 PM EDT documented in this encounter Ordered Prescriptions Prescription Sig Dispense Quantity Refills Last Filled Start Date End Date tirzepatide, weight loss, (Zepbound) 2.5 mg/0.5 mL solutionIndications :Class 2 severe obesity due to excess calories with serious comorbidity and body mass index (BMI) of 35.0 to 35.9 in adult (CMS/[facility] V24, [facility] V28) Inject 2.5 mg under the skin every 7 (seven) days. 2 mL 10/13/2024 documented in this encounter Progress Notes * Mya Paredes MD - 10/13/2024 2:00 PM EDT Mr. Garcia is a 39 y.o. year old male who presents for surgical follow up regarding obesity. HPI: Mr. Garcia was seen in 2022. Had tried naltrexone and bupropion. Has lost 30 lbs on tirzepatide. More energy. Heart feels better. H/O RAMA. Did not tolerate hospital test. ROS: GENERAL: No malaise, significant unintentional weight loss, fever, chills or night sweats. HEENT: No changes in hearing or vision, no nose bleeds or other nasal problems. NECK: No lumps, goiter, pain or significant neck swelling RESPIRATORY: No cough, wheezing or shortness of breath CARDIOVASCULAR:palpitations. GI: No abdominal discomfort, nausea, vomiting, or change in bowel habits. : No dysuria, frequency or incontinence. SKIN: No lesions, rash or itching. HEMATOLOGY: No prolonged bleeding, easy bruisability. LYMPHOLOGY No swollen nodes. MUSCULOSKELETAL: No abnormalities. NEURO: No abnormalities. All other systems reviewed which are negative. PAST MEDICAL HISTORY: Patient Active Problem List Diagnosis Date Noted Date Diagnosed Biceps rupture, distal, right, subsequent encounter 10/05/2024 Biceps rupture, distal, right, initial encounter 09/09/2024 Shortness of breath 06/12/2021 Ventricular premature beats 08/29/2020 Palpitations 08/29/2020 Obstructive sleep apnea 08/08/2019 Severe obesity (BMI 35.0-39.9) with comorbidity (CMS/[facility] V24, [facility] V28) 02/19/2017 Elevated blood sugar 08/11/2016 Lumbar disc disease 04/25/2014 Lumbago 04/25/2014 PAST SURGICAL HISTORY: Past Surgical History: Procedure Laterality Date SHOULDER SURGERY Right PROCEDURE: HISTORICAL SHOULDER SURGERY; COMMENT: rotator cuff repair WISDOM TOOTH EXTRACTION PROCEDURE: HISTORICAL WISDOM TEETH EXTRACTION SOCIAL HISTORY: Social History Tobacco Use Smoking status: Never Smokeless tobacco: Never Substance Use Topics Alcohol use: Yes Alcohol/week: 10.0 standard drinks of alcohol FAMILY HISTORY: Family History Problem Relation Name Age of Onset Heart attack Mother breast cancer (unilateral, age 45); HTN, HLD Diabetes Maternal Grandmother HTN, lung cancer(+smoker) Breast cancer Aunt maternal ?age/laterality?; lives in [place] Family Status Relation Name Status Mother Alive MGM Aunt maternal Alive Brother x 1 Alive MGF Alive PGM unknown PGF unknown Father unknown Alive Sister x 2 Alive No partnership data on file MEDICATIONS: There are no discontinued medications. ACTIVE MEDICATIONS: No outpatient medications have been marked as taking for the 10/13/24 encounter (Office Visit) with Mya Paredes MD. ALLERGIES: No Known Allergies PHYSICAL EXAM: Visit Vitals BP 109/65 Pulse 62 Temp 36.6 ??C (97.8 ??F) (Temporal) Ht 1.715 m (67.5 ) Wt 103 kg (227 lb) BMI 35.03 kg/m?? Smoking Status Never BSA 2.15 m?? APPEARANCE: Alert and oriented and in no acute distress EYES: Conjunctiva normal and sclera normal and anicteric. NECK: Neck supple with no adenopathy. LYMPH NODES: No gross cervical or clavicular lymphadenopathy. ABDOMEN: Bowel sounds normoactive, soft, non-tender, non-distended, EXTREMITIES: Extremities warm and well perfused without clubbing, cyanosis, or edema. SKIN: Skin color and texture normal. No rashes or lesions. NEUROLOGIC: Alert and oriented ??3. No motor or sensory deficits in the extremities. LABS/IMAGING: No reading radiologist ASSESSMENT: 1. Class 2 severe obesity due to excess calories with serious comorbidity and body mass index (BMI)of 35.0 to 35.9 in adult (CMS/HCC V24, CMS/HCC V28) 2. Obesity (BMI 30-39.9) PLAN: 1. 1. I reviewed with the patient different techniques to change the behavior towards food. Writtenmaterial was given to the patient can review these tools. I explained to the patient the need for night good sleep; the benefits of moderate intensity exercise half an hour to an hour a day, 4 to 5 days a week; and the importance of self-monitoring by weighing 3-5 times a week, and importance of practicing mindfulness when eating: what, how much and why. 2. The patient is a good candidate for medical weight management given a BMI of 35.03, class 2 obesity, with the following comorbid conditions: RAMA, hyperlipidemia, elevated FBS and A1C. He remains dedicated to improving their health and quality of life as well as remaining physically active. Uses treadmill and dos light weight exercises. I have had a long discussion with the patient regarding medical weight management which includes both oral medications including stimulants/appetite suppressants versus injectable GLP-1 medications. At this time, patient does not qualify for oral medication due to the following reasons - H/O PALPITATIONS AND SUPRAVENTRICULAR PREMATURE BEATS; We have decided to proceed with injectable GIP/GLP-1 medication -TIRZEPATIDE The risks and benefits of this medication were discussed in length with the patient. Benefits include weight loss and overall healthier lifestyle with he hopes of improving any co morbid conditions. Risks include nausea/vomiting, diarrhea, injection site reaction, gastroparesis. We have also discussed the potential for thyroid cancer and multiple endocrine neoplasia; patient denies family history of either condition. We discussed that this medication should be used long-term and that obesity will be treated as a chronic condition. If and when patient stops this medication weight may come back. The patient will follow-up every 4 weeks for a weight check and potential dose titration The patient will also continue to follow-up with the dietitian to ensure that they are working on proper eating habits in addition to using the medication. 3. The patient will let us know in 4 weeks if the medication is being effective or if the patient is having side effects. The dose will be adjusted depending upon the response and the presence of side effects. Follow-up in 4 months. documented in this encounter Plan of Treatment Upcoming Encounters Date Type Department Care Team (Late st Contact Info) Description 10/26/2024 10:40 AM EDT Office Visit [facility] [address] [facility] [address] [place] [address] Anna Lewis NP 300 [facility] [address] [place] [address] 11/14/2024 8:00 AM EDT Office Visit Adult Medicine [facility] [address] [place] [phone] Juli Lynne NP [address] [place] [address] 11/17/2024 11:30 AM EDT Hospital Encounter [facility] [place] [address] [place] [phone] Shanae Modi MD [address] [phone] 11/17/2024 11:30 AM EDT - 11/17/2024 4:30 PM EDT Surgery [facility] OR [address] [place] [phone] Shanae Modi MD [address] [phone] Repair right distal biceps tendon/with allograft if necessary [56475 (CPT )] 11/28/2024 9:45 AM EDT Office Visit Orthopedic Surgery - [place] 175 [facility] [address] [place] [phone] Shira Jacobsen PA [address] [phone] 03/23/2025 8:15 AM EST Office Visit Bariatric Surgery [address] [phone] Mya Paredes MD [address] [place] [phone] Scheduled Procedures Name Priority Associated Diagnoses Date/Ti me REPAIR BICEPS Biceps rupture, distal, right, subsequent encounter 11/17/2024 11:30 AM EDT documented as of this encounter Visit Diagnoses Diagnosis Biceps rupture, distal, right, subsequent encounter- Primary Class 2 severe obesity due to excess calories with serious comorbidity and body mass index (BMI) of 35.0 to 35.9 in adult (CMS/HCC V24, CMS/HCC V28)- Primary Obesity (BMI 30-39.9) Biceps rupture, distal, right, subsequent encounter documented in this encounter Discontinued Medications Medication Sig Discontinue Reason Start Date End Da te tirzepatide, weight loss, (Zepbound) 2.5 mg/0.5 mL solutionIndications:Obes ity (BMI 30-39.9) Inject 2.5 mg under the skin every 7 (seven) days. Reorder 08/10/2024 10/13/2024 documented as of this encounter Orders Outpatient Referral Count Last Ordered Date Fir st Ordered Date AMB REFERRAL TO WEIGHT MANAGEMENT 1 025 documented in this encounter Additional Health Concerns Assessment Noted Time PHQ-9 Depression Total Score: 0 08/11/19 25 9:06 AM EDT documented as of this encounter Care Teams Format Proofreader Relationship Specialty Start Date End Date Don Coats MD PCP - General Internal Medicine 12/01/12 documented as of this encounter
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
--- OUTSIDE RECORDS SUMMARY | 2024-10-17 10:50 | XMS_ITS | Encounter Summary ---
Author Organization [facility] Address [address] [place] [address] Care Team Providers Care Ironworker Wire Fence Erector Name Role Phone Don Coats MD Primary Care Provider [phone] Reason for Visit * Reason Onset Date Comments Medication 10/14/2024 Encounter Details Date Type Department Care Team ([facility] Contact Info) Description 10/14/2024 Telephone Bariatric Surgery - [address] [place] [address] Mya Paredes MD [address] [place] [phone] Social History Tobacco Use Types Packs/Day Years [...] for your loved ones. For example, child and family therapist or elderly care for an older adult? [...] as of this encounter Progress Notes * Afsaneh Vallejo [place] - 10/14/2024 10:11 AM EDT Images from the original note were not included. Patient denied for Zepbound - but I'm not sure why Dr. Paredes sent for vials - we will try to resubmit for pen injectors and ask Dr. Paredes to resend the script. documented in this encounter Plan of Treatment Upcoming Encounters Date Type Department Care Team (Late st Contact Info) Description 10/26/2024 10:40 AM EDT Office Visit [facility] - [facility] [address] 300 [facility] 102 [place] [phone] Anna Lewis NP 300 [facility] 154 [place] [address] 11/14/2024 8:00 AM EDT Office Visit Adult Medicine [facility] 444 [place] [address] Juli Lynne NP 444 [place] [address] 11/17/2024 11:30 AM EDT Hospital Encounter [facility] Main OR [address] [place] [phone] Shanae Modi MD [address] [phone] 11/17/2024 11:30 AM EDT - 11/17/2024 4:30 PM EDT Surgery [facility] Main OR [address] [place] [phone] Shanae Modi MD [address] [phone] Repair right distal biceps tendon/with allograft if necessary [12976 (CPT )] 11/28/2024 9:45 AM EDT Office Visit Orthopedic Surgery [facility] 175 [facility] 140 [place] [address] Shira Jacobsen PA 174 [facility] 140 [place] [phone] 03/23/2025 8:15 AM EST Office Visit Bariatric Surgery - [place] 175 [facility] 120 [place] [address] Mya Paredes MD [address] [place] [phone] Scheduled Procedures Name Priority Associated Diagnoses Date/Ti me REPAIR BICEPS Biceps rupture, distal, right, subsequent encounter 11/17/2024 11:30 AM EDT documented as of this encounter Visit Diagnoses Not on filedocumented in this encounter Additional Health Concerns Assessment Noted Time PHQ-9 Depression Total Score: 0 08/11/19 25 9:06 AM EDT documented as of this encounter Care Teams Ironworker Wire Fence Erector Relationship Specialty Start Date End Date Don Coats MD PCP - General Internal Medicine 12/01/12 documented as of this encounter
--- OUTSIDE RECORDS SUMMARY | 2024-10-17 10:50 | XMS_ITS | Clinical Summary ---
Author Organization [facility] [address] [place] [address] [place] [phone] Phone Care Team Providers Care Editor School Photograph Name Role Phone Don Coats MD Primary Care Provider [phone] Allergies No known active allergies Medications oxyCODONE-acetam inophen (PERCOCET) 5-325 mg per tablet Take 1 tablet by mouth every 6 (six) hours. Max Daily Amount: 4 tablets 112 tablet 5 Active oxyCODONE-acetam inophen (PERCOCET) 5-325 mg per tablet Take 1 tablet by mouth every 6 (six) hours. Max Daily Amount: 4 tablets 112 tablet 5 Active tirzepatide, weight loss, (Zepbound) 2.5 mg/0.5 mL solutionIndicati ons:Class 2 severe obesity due to excess calories with serious comorbidity and body mass index (BMI) of 35.0 to 35.9 in adult (CMS/HCC V24, CMS/HCC V28) Inject 2.5 mg under the skin every 7 (seven) days. 2 mL 5 Active tirzepatide, weight loss, (Zepbound) 2.5 mg/0.5 mL solutionIndicati ons:Obesity (BMI 30-39.9) Inject 2.5 mg under the skin every 7 (seven) days. 2 mL 5 10/14/19 25 Discontinu ed(Reorder ) oxyCODONE-acetam inophen (PERCOCET) 5-325 mg per tablet Take 1 tablet by mouth every 6 (six) hours. Max Daily Amount: 4 tablets 112 tablet 5 09/29/19 25 Discontinu ed(Reorder ) Active Problems Problem Noted Date Diagnosed Date Biceps rupture, distal, right, subsequent encoun ter 10/05/2024 Biceps rupture, distal, right, initial encounter [...] time. Obstructive sleep apnea 08/08/2019 Overview (11/12/2023): [facility] Home Sleep Apnea Test: Date 07/31/2019; BMI [...] Encounters Date Type Department Care Team Description 10/14/2024 Telephone Bariatric Surgery [facility] [address] [phone] Mya Paredes MD 10/13/2024 2:00 PM EDT Office Visit Bariatric Surgery [address] [phone] Mya Paredes MD Class 2 severe obesity due to excess calories with serious comorbidity and body mass index (BMI) of 35.0 to 35.9 in adult (CMS/[facility] V24, [facility] V28) (Primary Dx); Obesity (BMI 30-39.9) 10/04/2024 Telephone Orthopedic Surgery [facility] 250 175 [facility] 250 [place] [phone] Shanae Modi MD 09/19/2024 Telephone Orthopedic Surgery [facility] 175 [facility] 140 [place] [phone] Shanae Modi MD 09/16/2024 6:38 PM EDT - 09/16/2024 11:59 PM EDT Hospital Encounter [facility] MRI [address] [place] [phone] Biceps rupture, distal, right, initial encounter Discharge Disposition: Home or Self Care 09/09/2024 1:30 PM EDT Consult Orthopedic Surgery [facility] 175 [facility] 140 [place] [phone] Shanae Modi MD Right elbow pain (Primary Dx); Biceps rupture, distal, right, initial encounter 09/01/2024 Telephone [address] [phone] [place]ta [place], [place] 08/24/2024 10:00 AM EDT - 08/24/2024 11:59 PM EDT Hospital Encounter Radiology Department - [address] [phone] Nonintractable headache, unspecified chronicity pattern, unspecified headache type; Confusion Discharge Disposition: Home or Self Care 08/11/2024 Telephone Adult Medicine [address] [phone] Don Coats MD 08/10/2024 9:00 AM EDT Office Visit Adult Medicine [address] [phone] Don Coats MD Routine physical examination (Primary [...] cancer Aunt maternal ?age/lateralit y?; lives in [place] Diabetes Maternal Grandmother HTN, emeli ng cancer(+smoker) [...] care for your loved ones. For example, early childhood education worker or elderly care for an older [...] F) 10/13/2024 2:13 PM EDT Respiratory Rate 14 08/10/2024 8:57 AM EDT Oxygen Saturation 99% 08/10/2024 8:57 AM EDT Inhaled Oxygen Concentration - - Weight 103 kg (227 lb) 10/13/2024 2:13 PM EDT Height 171.5 cm (5' 7.5 ) 10/13/2024 2:13 PM EDT Body Mass Index 35.03 10/13/2024 2:13 PM EDT Plan of Treatment Upcoming Encounters Date Type Department Care Team (Late st Contact Info) Description 10/26/2024 10:40 AM EDT Office Visit [facility] - [facility] 102 300 [facility] 102 [place] [phone] Anna Lewis NP 300 [facility] 154 [place] [address] 11/14/2024 8:00 AM EDT Office Visit Adult Medicine [facility] 444 [place] [address] Juli Lynne NP 444 [place] [address] 11/17/2024 11:30 AM EDT Hospital Encounter [facility] Main OR [address] [place] [phone] Shanae Modi MD [address] [phone] 11/17/2024 11:30 AM EDT - 11/17/2024 4:30 PM EDT Surgery [facility] Main OR [address] [place] [phone] Shanae Modi MD [address] [phone] Repair right distal biceps tendon/with allograft if necessary [94509 (CPT )] 11/28/2024 9:45 AM EDT Office Visit Orthopedic Surgery [facility] 175 [facility] 140 [place] [phone] Shira Jacobsen PA 174 [facility] 140 [place] [phone] 03/23/2025 8:15 AM EST Office Visit Bariatric Surgery - [address] [place] [address] Mya Paredes MD [address] [place] [phone] Scheduled Procedures Name Priority Associated Diagnoses Date/Ti me REPAIR BICEPS Biceps rupture, distal, right, subsequent encounter 11/17/2024 11:30 AM EDT Health Maintenance Due Date Last Done Comments [...] Procedure Name Priority Date/Time Associated Diagnosis Comments ELBOW WO CONTRAST RIGHT STAT 09/16/2024 7:45 [...] Recently Relevant to Health Maintenance Results * Elbow emili Contrast Right (09/16/2024 7:45 PM EDT) Anatomical [...] Signed Date: 09/18/2024 05:00 ET Workstation ID: [id number] Transcribed By: Self Edit Transcribed Date: 09/18/2024 [...] Signed Date: 09/18/2024 05:00 ET Workstation ID: [id number] Transcribed By: Self Edit Transcribed Date: 09/18/2024 04:54 ET us Shanae JOHN MRI PROCEDURES Final Resu lt * XR [...] Normal elbow x-ray us Shanae Modi MD IMYuriy XR PROCEDURES Final Resul t * MR [...] Signed Date: 08/24/2024 17:15 ET Workstation ID: [id number] Transcribed By: Self Edit Transcribed Date: 08/24/2024 [...] Signed Date: 08/24/2024 17:15 ET Workstation ID: [id number] Transcribed By: Self Edit Transcribed Date: 08/24/2024 17:08 ET us Don Coats MD IM MRI PROCEDURES Final Result * (ABNORMAL) Lipid panel with reflex to direct LDL (08/10/2024 10:07 AM EDT) Cholesterol 218(H) 0 - 200 mg/dL LAB CHEMISTRY METHOD 08/10/2024 12:31 PM EDT [facility] Triglycerides 199(H) 0 - 150 mg/dL LAB CHEMISTRY METHOD 08/10/2024 12:31 PM EDT [facility] HDL 60 >=40 mg/dL LAB CHEMISTRY METHOD 08/10/2024 12:31 PM EDT [facility] LDL Calculated 118(H) 0 - 100 mg/dL LAB CHEMISTRY METHOD 08/10/2024 12:31 PM EDT [facility] VLDL Cholesterol Gianfranco 39.8 mg/dL LAB CHEMISTRY METHOD 08/10/2024 12:31 PM EDT [facility] Non HDL Chol. (LDL+VLDL) 158(H) <145 mg/dL LAB CHEMISTRY METHOD 08/10/2024 12:31 PM EDT [facility] Chol/HDL Ratio 3.6 0.0 - 4.4 LAB CHEMISTRY METHOD 08/10/2024 12:31 PM EDT [facility] Blood Venous blood specimen / Unknown Venipuncture / Unknown 08/10/2024 10:07 AM EDT 08/10/2024 10:07 AM EDT us Don Coats MD LAB BLOOD ORDERABLES Final Resu lt [facility] [address] [place] [address], * Hemoglobin A1c (08/10/2024 10:07 AM EDT) Hemoglobin A1C 5.6 <6.5 % LAB CHEMISTRY METHOD 08/10/2024 1:50 PM EDT [facility] Mean Bld Glu Estim. 114 mg/dL LAB CHEMISTRY METHOD 08/10/2024 1:50 PM [facility] Blood Venous blood specimen / Unknown Venipuncture / Unknown 08/10/2024 10:07 AM EDT 08/10/2024 10:07 AM EDT us Don Coats MD LAB BLOOD ORDERABLES Final Resu lt [facility] [address] [place] [address], * (ABNORMAL) Comprehensive metabolic panel (08/10/2024 10:07 AM EDT) [facility] Sodium 139 133 - 145 mmol/L LAB CHEMISTRY METHOD 08/10/2024 12:31 PM [facility] Potassium 4.4 3.5 - 5.5 mmol/L LAB CHEMISTRY METHOD 08/10/2024 12:31 PM [facility] Chloride 105 96 - 110 mmol/L LAB CHEMISTRY METHOD 08/10/2024 12:31 PM [facility] CO2 30 21 - 32 mmol/L LAB CHEMISTRY METHOD 08/10/2024 12:31 PM [facility] Anion Gap 4 3 - 11 LAB CHEMISTRY METHOD 08/10/2024 12:31 PM [facility] Glucose 104(H) 70 - 100 mg/dL LAB CHEMISTRY METHOD 08/10/2024 12:31 PM [facility] BUN 16 5 - 25 mg/dL LAB CHEMISTRY METHOD 08/10/2024 12:31 PM [facility] Creatinine 0.99 0.70 - 1.30 mg/dL LAB CHEMISTRY METHOD 08/10/2024 12:31 PM [facility] eGFR 99 >=60 mL/min/1. 73m2 LAB CHEMISTRY METHOD 08/10/2024 12:31 PM [facility] Comment:Calculation based on the Chronic Kidney Disease Epidemiology Collaboration (CKD-EPI) equation refit without adjustment for race. BUN/Creatinine Ratio 16.2 LAB CHEMISTRY METHOD 08/10/2024 12:31 PM [facility] Calcium 9.6 8.5 - 10.5 mg/dL LAB CHEMISTRY METHOD 08/10/2024 12:31 PM [facility] AST (SGOT) 26 10 - 42 unit/L LAB CHEMISTRY METHOD 08/10/2024 12:31 PM [facility] ALT (SGPT) 45 10 - 60 unit/L LAB CHEMISTRY METHOD 08/10/2024 12:31 PM [facility] Alkaline Phosphatase 87 42 - 121 unit/L LAB CHEMISTRY METHOD 08/10/2024 12:31 PM [facility] Total Protein 7.9 6.0 - 8.0 g/dL LAB CHEMISTRY METHOD 08/10/2024 12:31 PM [facility] Albumin 4.1 3.2 - 5.0 g/dL LAB CHEMISTRY METHOD 08/10/2024 12:31 PM [facility] Total Bilirubin 0.5 0.0 - 1.4 mg/dL LAB CHEMISTRY METHOD 08/10/2024 12:31 PM [facility] Blood Venous blood specimen / Unknown Venipuncture / Unknown 08/10/2024 10:07 AM EDT 08/10/2024 10:07 AM EDT us Don Coats MD LAB BLOOD ORDERABLES Final Resu lt [facility] [address] [place] [address], * Hepatitis C antibody (02/12/2024 12:45 PM EST) [facility] Hepatitis C Antibody Negative Negative LAB CHEMISTRY METHOD 02/12/2024 5:30 PM EST [facility] Blood Venous blood specimen / Unknown Venipuncture / Unknown 02/12/2024 12:45 PM EST 02/12/2024 12:45 PM EST Rehan AMOR LAB BLOOD ORDERABLES Fi nal Result [facility] [address] [place] [address], * HIV 1,2 antibody, p24 antigen with reflex to differentiation (02/12/2024 12:45 PM EST) [facility] HIV Combo AB/AG Negative Negative LAB CHEMISTRY METHOD 02/12/2024 5:30 PM EST [facility] Blood Venous blood specimen / Unknown Venipuncture / Unknown 02/12/2024 12:45 PM EST 02/12/2024 12:45 PM EST Narrative [facility] - 02/12/2024 5:30 PM [...] AMOR LAB BLOOD ORDERABLES Fi nal Result [facility] [address] [place] [address], [place] [phone] * Hm Depression Screening (02/11/2023) [facility] Depression Screening Abstracted Historical Provider HEALTH MAINTENANCE Final Result from Last 3 Months or Most Recently Relevant to Health Maintenance Insurance [facility] Care Teams Editor School Photograph Relationship Specialty Start Date End Date Don Coats MD PCP - General Internal Medicine 12/01/12
--- OUTSIDE RECORDS SUMMARY | 2024-10-17 10:50 | XMS_ITS | Encounter Summary ---
Author Organization [facility] Address [address] [place] [address] Care Team Providers Care Box Lining Machine Feeder Name Role Phone Don Coats MD Primary Care Provider [phone] Encounter Details Date Type Department Care Team ([facility] st Contact Info) Description 10/04/2024 Telephone Orthopedic Surgery - [place] 250 175 [facility] 250 [place] [address] Shanae Modi MD 175 [facility] 140 [place] [address] Social History Tobacco Use Types Packs/Day Years [...] your loved ones. For example, early childhood or elderly care for an older adult? [...] as of this encounter Progress Notes * Shanae Modi MD - 10/07/2024 6:00 PM EDT Unable to call the patient back due to [employer] outage. I have sent him a [employer] message * Shanae Modi MD - 10/05/2024 5:24 PM EDT I called the patient back. He would like to proceed with biceps tendon repair. I did inform him as we had previously discussed that sometimes we do have to use a tendon graft and that some time is past the likelihood of that has gone up. I will give the information to my neurosurgical nurse practitioner will start the scheduling process. * Mandy Cleveland Vic - 10/04/2024 9:35 AM EDT Joselo came into the office today requesting a call back regarding to move forward with surgery.Please advise. Thanks documented in this encounter Plan of Treatment Upcoming Encounters Date Type Department Care Team (Late st Contact Info) Description 10/26/2024 10:40 AM EDT Office Visit [facility] - [facility] 102 300 [facility] 102 [place] [address] Anna Lewis NP 300 [facility] 154 [place] [address] 11/14/2024 8:00 AM EDT Office Visit Adult Medicine [facility] 444 [place] [address] Juli Lynne NP 444 [place] [address] 11/17/2024 11:30 AM EDT Hospital Encounter [facility] Main OR [address] [place] [phone] Shanae Modi MD 175 [facility] 140 [place] [phone] 11/17/2024 11:30 AM EDT - 11/17/2024 4:30 PM EDT Surgery [facility] OR [address] [place] [phone] Shanae Modi MD [address] [phone] Repair right distal biceps tendon/with allograft if necessary [01456 (CPT )] 11/28/2024 9:45 AM EDT Office Visit Orthopedic Surgery - [place] [address] [place] [phone] Shira Jacobsen PA [address] [place] [address] [place] [phone] 03/23/2025 8:15 AM EST Office Visit Bariatric Surgery - [place] [address] [facility] [address] [place] [phone] Mya Paredes MD [address] [place] [phone] Scheduled Procedures Name Priority Associated Diagnoses Date/Ti me REPAIR BICEPS Biceps rupture, distal, right, subsequent encounter 11/17/2024 11:30 AM EDT documented as of this encounter Visit Diagnoses Not on filedocumented in this encounter Additional Health Concerns Assessment Noted Time PHQ-9 Depression Total Score: 0 08/11/19 9:06 AM EDT documented as of this encounter Care Teams Box Lining Machine Feeder Relationship Specialty Start Date End Date Don Coats MD PCP - General Internal Medicine 12/01/12 documented as of this encounter
== END 2024-10-17 10:36 | disposition home or self-care (01) ==
LOC: HO.HUSH 09:35
PROVIDERS: PCP Internal Medicine; Visit Provider Urology
DX: R39.198 Other difficulties with micturition (principal); R39.13 Splitting of urinary stream; R35.0 Frequency of micturition; R39.11 Hesitancy of micturition; N53.19 Other ejaculatory dysfunction; Z13.9 Encounter for screening, unspecified
CPT/HCPCS: 52000

== ENCOUNTER → 2024-10-17 09:34 | Outpatient (BNVA) | payer OTHER, SELFPAY | PROVIDERS: PCP Internal Medicine; Visit Provider Urology | DX: R39.13 Splitting of urinary stream (principal); R35.0 Frequency of micturition; N53.19 Other ejaculatory dysfunction | CPT/HCPCS: 52000; 81003 ==